=== PATIENT | female | born 2000 | race African-American/Black ===

== ENCOUNTER 2018-02-05 00:16 | Emergency (ER) | payer SELFPAY | END 2018-02-05 01:06 | disposition left against medical advice (07) | LOC: PHED 00:16 | DX: Z00.8 Encounter for other general examination (principal) | CPT/HCPCS: 99281 ==

== ENCOUNTER 2018-02-05 01:39 | Inpatient (IN) | payer MEDICAID ==
[~2018-02-05] VITALS: Ht 167.6 cm; Wt 59.6 kg
[2018-02-05 01:47] VITALS: BP 111/63; PULSE 79; RESP 18; TEMP 98.7; O2SAT 100
--- NOTE | 2018-02-05 02:14 | PD ---
HPI Chief Complaint: Psychiatric Symptoms Time Seen by Provider: 02:09 Travel History International Travel<30 days: No Contact w/Intl Traveler<30days: No Traveled to known affect area: No History of Present Illness HPI 17-year-old female presents voluntarily with her mother for psychiatric evaluation. She reports that she has been feeling depressed and suicidal for several years. Tiffani was the first time that she told her mother about this and thus she was brought here for further evaluation. She told her mother that at some point in the past she tried to commit suicide but she will not say specifically what she did. She denies any attempts at self-harm recently. She denies any drug or alcohol use. She denies any homicidal ideation, auditory visual hallucinations. Symptoms moderate with no aggravating or relieving factors. No medical complaints. [facility] Past Medical History Medical History: Denies Significant Hx Diminished Hearing: No Tetanus Vaccination: Unknown Influenza Vaccination: No ?: Not LMP: 02/04/2018 Past Surgical History Surgical History: No Previous Surgery Social History Alcohol Use: No Tobacco Use: No Substance Use: No Allergies-Medications (Allergen,Severity, Reaction): Coded Allergies: No Known Allergies (Unverified , 02/05/18) Review of Systems Except as stated in HPI: all other systems reviewed are Neg Physical Exam Narrative GENERAL: Well-developed well-nourished female no acute distress SKIN: Warm and dry. HEAD: Atraumatic. Normocephalic. EYES: Pupils equal and round. No scleral icterus. No injection or drainage. ENT: No nasal bleeding or discharge. Mucous membranes pink and moist. NECK: Trachea midline. No JVD. CARDIOVASCULAR: Regular rate and rhythm. No murmur appreciated. RESPIRATORY: No accessory muscle use. Clear to auscultation. Breath sounds equal bilaterally. GASTROINTESTINAL: Abdomen soft, non-tender, nondistended. Hepatic and splenic margins not palpable. MUSCULOSKELETAL: No obvious deformities. No clubbing. No cyanosis. No edema. NEUROLOGICAL: Awake and alert. No obvious cranial nerve deficits. Motor grossly within normal limits. Normal speech. PSYCHIATRIC: Appropriate mood and affect; insight and judgment normal. Data Data Last Documented VS Vital Signs Date Time Temp Pulse Resp B/P (MAP) Pulse Ox O2 Delivery O2 Flow Rate FiO2 02/05/18 01:47 98.7 79 18 111/63 (79) 100 Orders Orders Complete Blood Count With Diff (02/05/18 02:09) Comprehensive Metabolic Panel (02/05/18 02:09) Thyroid Stimulating Hormone (02/05/18 02:09) Ed Urine Pregnancytest Poc (02/05/18 02:09) Psych Screen (02/05/18 02:09) Drug Screen, Random Urine (02/05/18 02:09) Potassium Chloride (Kcl) (02/05/18 03:15) Labs Laboratory Tests Test 02/05/18 02:15 White Blood Count 6.7 TH/MM3 Red Blood Count 5.54 MIL/MM3 Hemoglobin 13.3 GM/DL Hematocrit 40.2 % Mean Corpuscular Volume 72.5 FL Mean Corpuscular Hemoglobin 24.0 PG Mean Corpuscular Hemoglobin Concent 33.1 % Red Cell Distribution Width 17.4 % Platelet Count 205 TH/MM3 Mean Platelet Volume 8.3 FL Neutrophils (%) (Auto) 56.9 % Lymphocytes (%) (Auto) 35.1 % Monocytes (%) (Auto) 7.0 % Eosinophils (%) (Auto) 0.8 % Basophils (%) (Auto) 0.2 % Neutrophils # (Auto) 3.8 TH/MM3 Lymphocytes # (Auto) 2.4 TH/MM3 Monocytes # (Auto) 0.5 TH/MM3 Eosinophils # (Auto) 0.1 TH/MM3 Basophils # (Auto) 0.0 TH/MM3 CBC Comment DIFF FINAL Differential Comment Blood Urea Nitrogen 10 MG/DL Creatinine 0.69 MG/DL Random Glucose 83 MG/DL Total Protein 7.8 GM/DL Albumin 4.0 GM/DL Calcium Level 8.6 MG/DL Alkaline Phosphatase 76 U/L Aspartate Amino Transf (AST/SGOT) 13 U/L Alanine Aminotransferase (ALT/SGPT) 16 U/L Total Bilirubin 0.5 MG/DL Sodium Level 140 MEQ/L Potassium Level 3.3 MEQ/L Chloride Level 107 MEQ/L Carbon Dioxide Level 24.5 MEQ/L Anion Gap 9 MEQ/L Estimat Glomerular Filtration Rate 133 ML/MIN Thyroid Stimulating Hormone 3rd Gen 1.350 uIU/ML Urine Opiates Screen NEG Urine Barbiturates Screen NEG Urine Amphetamines Screen NEG Urine Benzodiazepines Screen NEG Urine Cocaine Screen NEG Urine Cannabinoids Screen NEG MDM Medical Decision Making Medical Screen Exam Complete: Yes Emergency Medical Condition: Yes Medical Record Reviewed: Yes Differential Diagnosis Major depressive disorder, depressive disorder not otherwise specified,, DMDD, acute psychosis, substance-induced mood disorder, adjustment reaction Narrative Course 17-year-old female presents for psychiatric evaluation of depression and suicidal ideation. Mental health screening discussed with the patient. Psychiatric screen ordered. Potassium is 3.3 otherwise lab work is unremarkable. Oral potassium chloride administered. The patient is medically cleared. Diagnosis Primary Impression: Medical clearance for psychiatric admission Bora Ibarra Feb 05, 2018 02:14
[2018-02-05 02:33] LABS: AUTOMATED NEUTROPHIL # 3.8 TH/MM3 (1.8-7.7); BASOPHIL % 0.2 % (0.0-2.0); EOSINOPHIL # 0.1 TH/MM3 (0-0.4); EOSINOPHIL % 0.8 % (0.0-4.0); HEMATOCRIT 40.2 % (35.0-46.0); HEMOGLOBIN 13.3 GM/DL (11.6-15.3); LYMPH % 35.1 % (9.0-44.0); LYMPHOCYTE # 2.4 TH/MM3 (1.0-4.8); MEAN CELL VOLUME 72.5 FL (80.0-100.0); MEAN CORPUSCULAR HGB CONC 33.1 % (32.0-36.0); MEAN PLATELET VOLUME 8.3 FL (7.0-11.0); MONOCYTE # 0.5 TH/MM3 (0-0.9); NEUT % 56.9 % (16.0-70.0); PLATELET COUNT 205 TH/MM3 (150-450); RED BLOOD COUNT 5.54 MIL/MM3 (4.00-5.30); RED CELL DISTRIBUTION WIDTH 17.4 % (11.6-17.2); WHITE BLOOD COUNT 6.7 TH/MM3 (4.0-11.0)
[2018-02-05 02:56] LABS: ALT (GPT) 16 U/L (9-42); AST (GOT) 13 U/L (16-38); BICARBONATE 24.5 MEQ/L (21.0-32.0); BLOOD UREA NITROGEN 10 MG/DL (7-18); CALCIUM 8.6 MG/DL (8.5-10.1); CHLORIDE 107 MEQ/L (98-107); CREATININE 0.69 MG/DL (0.50-1.00); GLOMERULAR FILTRATION RATE 133 ML/MIN (>89); GLUCOSE,RANDOM 83 MG/DL (74-106); SODIUM (NA) 140 MEQ/L (136-145)
[2018-02-05 03:06] LABS: ALKALINE PHOSPHATASE 76 U/L (45-117); TOTAL BILIRUBIN ADULT 0.5 MG/DL (0.2-1.0); TOTAL PROTEIN 7.8 GM/DL (6.4-8.2)
[2018-02-05] MEDS ORDERED: POTASSIUM CHLORIDE 20 MEQ CONTROLLED RELEASE TAB PO ONE (03:15)
[2018-02-05 08:13] VITALS: PULSE 71; RESP 18; O2SAT 100
[2018-02-05] MEDS ORDERED: ALUMINUM/MAGNESIUM/SIMETH 30 ML CUP PO PRN (10:00)
[2018-02-05] MEDS ORDERED: MAGNESIUM HYDROXIDE SUSP 30 ML CUP PO PRN (10:00)
[2018-02-05] MEDS ORDERED: LORazepam 2 MG/ML VIAL IM PRN ×2 (10:00)
[2018-02-05] MEDS: NICOTINE 21 MG/24 HR PATCH T-DERMAL SCH (10:00)
[2018-02-05] MEDS ORDERED: LORazepam 0.5 MG TAB PO PRN (10:00)
[2018-02-05] MEDS ORDERED: ACETAMINOPHEN 325 MG TAB PO PRN (10:00)
[2018-02-05] MEDS ORDERED: LORazepam 1 MG TAB PO PRN (10:00)
[2018-02-05 11:13] VITALS: BP 118/61
[2018-02-05 11:40] VITALS: BP 113/66; PULSE 81; RESP 16; TEMP 98.2; O2SAT 98
--- NOTE | 2018-02-05 15:27 | HHI.HP ---
Provisional Diagnosis Admission Date Feb 05, 2018 at 10:02 [place] I. Major depressive disorder, single episode, severe, without psychosis [place] II. Deferred [place] III. No medical history [place] IV. Recently emigrated to the [place] from [place] V. 35 Certification of Person's Competence To Provide Express and Informed Consent I have personally examined Nell House , a person being served at [facility] on, Feb 05, 2018 15:07. Express and informed consent means consent voluntarily given in writing, by a competent person, after sufficient explanation and disclosure of the subject matter involved to enable the person to make a knowing and willful decision without any element of force, fraud, deceit, duress, or other form of constraint or coercion. This person is 18 years of age or older, is not now known to be incompetent to consent to treatment with a guardian advocate, and does not have a health care surrogate or proxy currently making medical treatment decisions. I have found this person to be one of the following: [] Competent to provide express and informed consent, as defined above, for voluntary admission to this facility and is competent to provide express and informed consent for treatment. He/she has the consistent capacity to make well reasoned, willful, and knowing decisions concerning his or her medical or mental health treatment. The person fully and consistently understands the purpose of the admission for examination/placement and is fully capable of personally exercising all rights assured under [place] Incompetent to provide express and informed consent to voluntary admission, and this is incompetent to provide express and informed consent to treatment. The person must be transferred to involuntary status and a petition for a guardian advocate filed with the Circuit Court. [x] Refusing to provide express and informed consent to voluntary admission but is competent to provide express and informed consent for treatment. The person must be discharged or transferred to involuntary status. Form shall be completed within 24 hours of a person's arrival at the receiving facility and filed in the clinical record of each person: 1. Admitted on a voluntary basis 2. Permitted to provide express and informed consent to his/her own treatment 3. Allowed to transfer from involuntary to voluntary status 4. Prior to permitting a person to consent to his or her own treatment after having been previously found incompetent to consent to treatment. History of Present Illness Capacity: Has Capacity HPI The patient is 17-year-old [facility] woman, domiciled with her mother in [place], single, college student, employed in maintenance department at [employer], without no previous psychiatric history, no previous suicidal attempts, no previous psychiatric hospitalizations, no significant medical history, who presents voluntarily with her mother for psychiatric evaluation voluntarily. She initially reports that she has been feeling depressed and suicidal for several years. Last night was the first time that she told her mother about this and thus she was brought here for further evaluation. She told her mother that at some point in the past she tried to commit suicide but she will not say specifically what she did. She denies any attempts at self- harm recently. She denies any drug or alcohol use. She denies any homicidal ideation, auditory visual hallucinations. Symptoms moderate with no aggravating or relieving factors. No medical complaints. EMR was reviewed. Case was discussed with nursing charge and also with medical student Jude. Collateral information from her mother Armando Vyas, was obtained. On psychiatric evaluation I find a patient that is very tearful, she seems to be very fragile and vulnerable, at the beginning reluctant to open up about her depression, but with redirection and reassurance she was able to share that for the last months she has been having persistent and recurrent suicidal thoughts for no reason, as the patient discloses information she is started crying profusely. She says that she cannot understand her feelings and emotions. She says that she has always been a sad person, but since emigrated to [facility] , "for no reason", even though the patient cannot identify an acute stressors, the patient has been feeling increasingly hopeless, helpless, with no motivation , extremely pessimistic, no finding meaning in her life, persistently thinking and committing suicide in multiple ways. Last night, she says, she had a good day, but once she left her job she had "an emergency of killing myself". Her mother was able to add, that she was surprised that the patient all of the sudden yesterday, after having a good day at work, they work together [employer], they were in their way back home, the patient started crying stating that she wanted to kill herself. The mother became quite scared and drove back to [facility]. During my evaluation the patient is logical, coherent and relevant. She seems to be very sensitive to frustration and criticism, she denies recent interpersonal problems, she denied recent disagreement with significant others of friends, he denies economical burden. During my evaluation there is no visible paranoia, delusions, ideas of reference , disorganized behavior or speech, attention deficit, fluctuation of consciousness. She is oriented 3. She denies the use of illegal drugs and alcohol. Review of Systems Constitutional: DENIES: Diaphoretic episodes, Fatigue, Fever, Weight gain, Weight loss, Chills, Dizziness, Change in appetite, Night Sweats Endocrine: DENIES: Abnorml menstrual pattern, Heat/cold intolerance, Polydipsia , Polyuria, Polyphagia Eyes: DENIES: Blurred vision, Diplopia, Eye inflammation, Eye pain, Vision loss , Photosensitivity, Double Vision Ears, nose, mouth, throat: DENIES: Tinnitus, Hearing loss, Vertigo, Nasal discharge, Oral lesions, Throat pain, Hoarseness, Ear Pain, Running Nose, Epistaxis, Sinus Pain, Toothache, Odynophagia Respiratory: DENIES: Apneas, Cough, Snoring, Wheezing, Hemoptysis, Sputum production, Shortness of breath Cardiovascular: DENIES: Chest pain, Palpitations, Syncope, Dyspnea on Exertion , PND, Lower Extremity Edema, Orthopnea, Claudication Gastrointestinal: DENIES: Abdominal pain, Black stools, Bloody stools, Constipation, Diarrhea, Nausea, Vomiting, Difficulty Swallowing, Anorexia Genitourinary: DENIES: Abnormal vaginal bleeding, Dysmenorrhea, Dyspareunia, Sexual dysfunction, Urinary frequency, Urinary incontinence, Urgency, Hematuria , Dysuria, Nocturia, Vaginal discharge Musculoskeletal: DENIES: Joint pain, Muscle aches, Stiffness, Joint Swelling, Back pain, Neck pain Integumentary: DENIES: Abnormal pigmentation, Pruritus, Rash, Nail changes, Breast masses, Breast skin changes, Nipple discharge Hematologic/lymphatic: DENIES: Bruising, Lymphadenopathy Immunologic/allergic: DENIES: Eczema, Urticaria Neurologic: DENIES: Abnormal gait, Headache, Localized weakness, Paresthesias, Seizures, Speech Problems, Tremor, Poor Balance Psychiatric: COMPLAINS OF: Mood changes, Depression, Suicidal Ideation, DENIES : Anxiety, Confusion, Hallucinations, Agitation, Homicidal Ideation, Delusions Substance Abuse History Drugs/Alcohol past 12 months The patient denies the use of drugs and alcohol Past Family Social History Coded Allergies: No Known Allergies (Unverified , 02/05/18) Past Medical History No significant medical history Current Medications Medications (Trade) Dose Ordered Sig/Emperatriz Route Start Time Stop Time Status Last Admin (Ativan) 1 mg Q6H PRN PO 02/05/18 10:00 (Ativan Inj) 1 mg Q6H PRN IM 02/05/18 10:00 (Ativan) 0.5 mg Q12H PRN PO 02/05/18 10:00 (Ativan Inj) 0.5 mg Q12H PRN IM 02/05/18 10:00 (Tylenol) 650 mg Q4H PRN PO 02/05/18 10:00 (Milk Of Magnesia Liq) 30 ml DAILY PRN PO 02/05/18 10:00 (Mag-Al Plus Susp Liq) 30 ml Q6H PRN PO 02/05/18 10:00 (Habitrol 21 Mg Patch.24 Hr) 1 patch DAILY T-DERMAL 02/05/18 10:00 Miscellaneous Information 1 DAILY T-DERMAL 02/06/18 09:00 Family Psych History Her mother had a history of depression, one suicidal attempt by overdose Social History Patient was born and raised in [place], she lives in [place] with her mother , she is single, no kids, employed in maintenance in [employer], she is a college student. Patient's Strengths (min. 2) Employed, no previous psychiatric history, family support Physical Exam No tremors, no EPS, no psychomotor retardation or agitation, no catatonia Vital Signs Vital Signs Date Time Temp Pulse Resp B/P (MAP) Pulse Ox O2 Delivery O2 Flow Rate FiO2 02/05/18 11:40 98.2 81 16 113/66 (82) 98 02/05/18 08:13 Room Air Lab Results Test 02/05/18 02:15 White Blood Count 6.7 TH/MM3 Red Blood Count 5.54 MIL/MM3 Hemoglobin 13.3 GM/DL Hematocrit 40.2 % Mean Corpuscular Volume 72.5 FL Mean Corpuscular Hemoglobin 24.0 PG Mean Corpuscular Hemoglobin Concent 33.1 % Red Cell Distribution Width 17.4 % Platelet Count 205 TH/MM3 Mean Platelet Volume 8.3 FL Neutrophils (%) (Auto) 56.9 % Lymphocytes (%) (Auto) 35.1 % Monocytes (%) (Auto) 7.0 % Eosinophils (%) (Auto) 0.8 % Basophils (%) (Auto) 0.2 % Neutrophils # (Auto) 3.8 TH/MM3 Lymphocytes # (Auto) 2.4 TH/MM3 Monocytes # (Auto) 0.5 TH/MM3 Eosinophils # (Auto) 0.1 TH/MM3 Basophils # (Auto) 0.0 TH/MM3 CBC Comment DIFF FINAL Differential Comment Blood Urea Nitrogen 10 MG/DL Creatinine 0.69 MG/DL Random Glucose 83 MG/DL Total Protein 7.8 GM/DL Albumin 4.0 GM/DL Calcium Level 8.6 MG/DL Alkaline Phosphatase 76 U/L Aspartate Amino Transf (AST/SGOT) 13 U/L Alanine Aminotransferase (ALT/SGPT) 16 U/L Total Bilirubin 0.5 MG/DL Sodium Level 140 MEQ/L Potassium Level 3.3 MEQ/L Chloride Level 107 MEQ/L Carbon Dioxide Level 24.5 MEQ/L Anion Gap 9 MEQ/L Estimat Glomerular Filtration Rate 133 ML/MIN Thyroid Stimulating Hormone 3rd Gen 1.350 uIU/ML Urine Opiates Screen NEG Urine Barbiturates Screen NEG Urine Amphetamines Screen NEG Urine Benzodiazepines Screen NEG Urine Cocaine Screen NEG Urine Cannabinoids Screen NEG Mental Status Examination Appearance: Appropriate Consciousness: Alert Orientation: x4 Motor Activity: Normal gait Speech: Unremarkable Language: Adequate Fund of Knowledge: Adequate Attention and Concentration: Adequate Memory: Unremarkable Mood: Sad Affect: Irritable, Sad Thought Process & Associations: Intact Thought Content: Appropriate Hallucination Type: None Delusion Type: None Suicidal Ideation: Yes Suicidal Plan: Yes Suicidal Intention: No Homicidal Ideation: No Homicidal Plan: No Homicidal Intention: No Insight: Poor Judgment: Poor Assessment & Plan Problem List: (1) Major depressive disorder, single episode ICD Codes: F32.9 - Major depressive disorder, single episode, unspecified Assessment & Plan: On psychiatric evaluation I find a patient in the ER at the beginning is oppositional, resistant to open up, but with redirection she is able to talk about her recent increase symptoms of depression and suicidal ideation. Patient reports that for a long time she has been feeling hopeless, helpless, with increased sensitivity to rejection, frustration, mood swings, lack of motivation, generalized pessimism, and persistent suicidal thoughts without a suicidal plan. She says that by time to time, for a long period of time now, she has been having intrusive, kind of obsessive suicidal thoughts without a clear acute stressor in her life. Yesterday as she was leaving her job with her mother, they work together at [employer] [place], all of the sudden she is started having suicidal thoughts, she is started crying and feeling very depressed and her mother brought her to the ER for psychiatric evaluation in voluntary basis. During my evaluation the patient presents very tearful, objectively depressed, at times even she looks desperate, even though she consistently denies any acute or chronic stressor in her life other than moving from [place] to the [facility] about a year ago. Given her persistent suicidal ideation, her current fragility and vulnerability, acute symptoms of depression, the patient has an increased risk of suicidality and she needs psychiatric admission for stabilization. Patient will be Jocelynn brody. Admitted in psychiatry in 2600 unit. Her mother agree with this plan. Extensive support, motivation and psychoeducation provided. I am thinking in a primary mood disorder as a primary source of current presentation, but even though I could not elicit any psychotic symptoms a primary psychotic disorder is also possible. Will order Ativan 2 mg p.o. stat to help the patient to calm down, Zoloft 25 mg p.o. daily for depression. will consult psychiatry for second opinion. Assessment & Plan Estimated LOS: Manny Granger MD Feb 05, 2018 15:27
[2018-02-05 18:23] VITALS: BP 130/70; PULSE 80; RESP 16; TEMP 97.6; O2SAT 99
--- NOTE | 2018-02-05 22:09 | PD.CONS ---
HPI Chief Complaint vaginal discharge Travel History International Travel<30 Days: No Contact w/Intl Traveler<30Days: No Known Affected Area: No History of Present Illness HPI 17-year-old G0 who was involuntarily committed for suicidal thoughts. Upon review of systems, apparently the patient noted that she had a history of regular vaginal discharge. The patient reports that she does have regular vaginal discharge that is white in nature, she denies any odor, she denies any color to the discharge light green/yellow. She reports that occasionally she has some itching. She is unable to further characterize the discharge is then or thick/clumpy reports that it dries on her underwear. There have been no attempted treatments. There are no aggravating symptoms. She reports that at this time she is having no vaginal discharge or itching. She reports that her period started Monday, 2 days ago. She reports that she is not sexually active at this time. She reports that occasionally she gets small "bumps" on her perineal area that was spontaneously drained. She reports that she had one recently that she put antibiotic cream on and it has improved. History Past Medical History Medical History: Denies Significant Hx Obstetric History Obstetric History G0 Menarche age 10, menses every month and last 5-6 days Patient has never had a Pap smear Patient has a history of chlamydia in the past Patient reports she is not sexually active Past Surgical History Surgical History: No Previous Surgery Family History Family History: Negative Social History Alcohol Use: No Tobacco Use: No Substance Abuse: No Allergies-Medications (Allergen,Severity, Reaction): Coded Allergies: No Known Allergies (Unverified , 02/05/18) Review of Systems Except as stated in HPI: all other systems reviewed are Neg Physical Exam Vital Signs Date Time Temp Pulse Resp B/P (MAP) Pulse Ox O2 Delivery O2 Flow Rate FiO2 02/05/18 18:23 97.6 80 16 130/70 (90) 99 02/05/18 11:40 98.2 81 16 113/66 (82) 98 02/05/18 11:13 118/61 (80) 02/05/18 08:13 71 18 100 Room Air 02/05/18 01:47 98.7 79 18 111/63 (79) 100 Narrative GENERAL: Well-nourished, well-developed patient. SKIN: Warm and dry. HEAD: Normocephalic and atraumatic. EYES: No scleral icterus. No injection or drainage. ENT: No nasal drainage noted. Mucous membranes pink. Airway patent. NECK: Supple, trachea midline. No JVD. CARDIOVASCULAR: Regular rate and rhythm without murmurs, gallops, or rubs. RESPIRATORY: Breath sounds equal bilaterally. No accessory muscle use. BREASTS: Deferred ABDOMEN/GI: Abdomen soft, non-tender, bowel sounds present, no rebound, no guarding GENITOURINARY: The patient has refused a gynecological examination she is having her period at this time. EXTREMITIES: No cyanosis or edema. BACK: Nontender without obvious deformity. NEUROLOGICAL/musculoskeletal: Awake and alert. Motor and sensory grossly within normal limits. Grossly normal muscle strength in all muscle groups. Normal speech. Normal range of motion, gait not assessed Psychiatric: Grossly normal memory and affect Data Data Orders Orders Complete Blood Count With Diff (02/05/18 02:09) Comprehensive Metabolic Panel (02/05/18 02:09) Thyroid Stimulating Hormone (02/05/18 02:09) Ed Urine Pregnancytest Poc (02/05/18 02:09) Psych Screen (02/05/18 02:09) Drug Screen, Random Urine (02/05/18 02:09) Potassium Chloride (Kcl) (02/05/18 03:15) Diet Regular Basic (02/05/18 Breakfast) Admit To Inpatient Psych (02/05/18 ) Vital Signs (Adult) DIANN.Q12H.E (02/05/18 09:58) Activity Oob Ad Katherine (02/05/18 09:58) Lorazepam (Ativan) (02/05/18 10:00) Lorazepam Inj (Ativan Inj) (02/05/18 10:00) Lorazepam (Ativan) (02/05/18 10:00) Lorazepam Inj (Ativan Inj) (02/05/18 10:00) Acetaminophen (Tylenol) (02/05/18 10:00) Magnesium Hydroxide Liq (Milk Of Magnesi (02/05/18 10:00) Al-Mag Hy-Si 40-40-4 Mg/Ml Liq (Mag-Al P (02/05/18 10:00) Nicotine 21 Mg Patch.24 Hr (Habitrol 21 (02/05/18 10:00) Basic Metabolic Panel (Bmp) (02/06/18 06:00) Lipid Profile (02/06/18 06:00) Hemoglobin (Hgb) A1c (02/06/18 06:00) Remove Old Patch (02/06/18 09:00) Consult Psychiatry (02/05/18 ) (Hub Use Only)Inp Phy Cons/Ref (02/05/18 ) Level Of Observation (Psych) (02/05/18 17:43) Consult Gynecology (02/05/18 ) ^ Other Nursing Orders (02/05/18 18:21) (Hub Use Only)Inp Phy Cons/Ref (02/05/18 ) Labs Laboratory Tests Test 02/05/18 02:15 White Blood Count 6.7 Red Blood Count 5.54 Hemoglobin 13.3 Hematocrit 40.2 Mean Corpuscular Volume 72.5 Mean Corpuscular Hemoglobin 24.0 Mean Corpuscular Hemoglobin Concent 33.1 Red Cell Distribution Width 17.4 Platelet Count 205 Mean Platelet Volume 8.3 Neutrophils (%) (Auto) 56.9 Lymphocytes (%) (Auto) 35.1 Monocytes (%) (Auto) 7.0 Eosinophils (%) (Auto) 0.8 Basophils (%) (Auto) 0.2 Neutrophils # (Auto) 3.8 Lymphocytes # (Auto) 2.4 Monocytes # (Auto) 0.5 Eosinophils # (Auto) 0.1 Basophils # (Auto) 0.0 CBC Comment DIFF FINAL Differential Comment Blood Urea Nitrogen 10 Creatinine 0.69 Random Glucose 83 Total Protein 7.8 Albumin 4.0 Calcium Level 8.6 Alkaline Phosphatase 76 Aspartate Amino Transf (AST/SGOT) 13 Alanine Aminotransferase (ALT/SGPT) 16 Total Bilirubin 0.5 Sodium Level 140 Potassium Level 3.3 Chloride Level 107 Carbon Dioxide Level 24.5 Anion Gap 9 Estimat Glomerular Filtration Rate 133 Thyroid Stimulating Hormone 3rd Gen 1.350 Urine Opiates Screen NEG Urine Barbiturates Screen NEG Urine Amphetamines Screen NEG Urine Benzodiazepines Screen NEG Urine Cocaine Screen NEG Urine Cannabinoids Screen NEG MDM Plan Assessment/plan: 1. Involuntary admission for suicidal thoughts: As per primary team 2. History of vaginal discharge: The patient has refused gynecologic exam at this time due to her menses. 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 Would perform wet prep to evaluate for bacterial vaginosis, trichomonas, and Nichole. Patient denies any recent sexual activity but will perform GC chlamydia testing. 3. History of chlamydia 4. Thank you for the consult on this pleasant young lady, as noted above please recall when patient's menses has ended as she has agreed to a gynecological exam after her period has ended. Admitting diagnosis: Adjusment disorder with depression Debi Salcedo MD Feb 05, 2018 22:09
[2018-02-06 06:25] VITALS: BP 98/55; PULSE 81; RESP 17; TEMP 97.6; O2SAT 100
[2018-02-06 08:49] LABS: BACTERIA, URINE RARE /hpf; BILIRUBIN, URINE NEG (NEG); BLOOD, URINE MOD (NEG); GLUCOSE,URINE NEG (NEG); KETONE, URINE TRACE mg/dL (NEG); MUCUS URINE FEW /lpf (OCC); NITRITE,URINE NEG (NEG); SQUAMOUS EPITHELIAL CELL URINE 1 /hpf (0-5); URINE COLOR YELLOW (YELLW/STRAW); URINE LEUKOCYTE ESTERASE NEG (NEG)
[2018-02-06] MEDS: NICOTINE 21 MG/24 HR PATCH T-DERMAL SCH (09:00)
[2018-02-06] MEDS: REMOVE OLD NICOTINE PATCH T-DERMAL SCH (09:00)
[2018-02-06 09:26] LABS: BICARBONATE 21.6 MEQ/L (21.0-32.0); BLOOD UREA NITROGEN 11 MG/DL (7-18); CALCIUM 8.7 MG/DL (8.5-10.1); CHLORIDE 109 MEQ/L (98-107); CREATININE 0.67 MG/DL (0.50-1.00); GLOMERULAR FILTRATION RATE 137 ML/MIN (>89); GLUCOSE,RANDOM 78 MG/DL (74-106); SODIUM (NA) 141 MEQ/L (136-145)
[2018-02-06 09:27] LABS: CHOLESTEROL 123 MG/DL (120-200); TRIGLYCERIDES 27 MG/DL (42-150)
[2018-02-06 09:30] LABS: HDL CHOLESTEROL 68.2 MG/DL (40.0-60.0); LDL CHOLESTEROL 49 MG/DL (0-99)
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
[2018-02-06] MEDS ORDERED: hydrOXYzine HCL 50 MG TAB PO PRN (10:30)
[2018-02-06] MEDS ORDERED: PILL SPLITTER OTHER PRN (10:30)
[2018-02-06] MEDS: SERTRALINE HCL 50 MG TAB PO SCH (12:44)
[2018-02-06] MEDS ORDERED: diphenhydrAMINE HCL 50 MG CAP PO PRN (21:00)
[2018-02-07 06:23] VITALS: BP 82/48; PULSE 91; RESP 20; TEMP 97.9; O2SAT 98
[2018-02-07] MEDS: REMOVE OLD NICOTINE PATCH T-DERMAL SCH (08:32)
[2018-02-07] MEDS: SERTRALINE HCL 50 MG TAB PO SCH (08:32)
[2018-02-07] MEDS: NICOTINE 21 MG/24 HR PATCH T-DERMAL SCH (08:32)
[2018-02-07 09:51] VITALS: BP 99/67; PULSE 87; RESP 18; TEMP 98.2; O2SAT 100
--- NOTE | 2018-02-07 14:40 | HHI.PYPN ---
Subjective Remarks Patient seen and examined with nurse. Chart reviewed. Case discussed with nursing staff who reports the patient seems more upbeat. On my examination today, the patient's affect does indeed seem brighter. She denies any suicidal or homicidal ideation. Extensive psychoeducation regarding diagnosis of unipolar depression and differentiating this from bipolar depression. Patient agrees that her symptoms are more consistent with unipolar depression. She complains of some mild dizziness from medications. I will check orthostatics and have instituted fall precautions. I have also counseled the patient regarding safe standing. No other physical complaints. Review of Systems Except as stated in HPI: all other systems reviewed are Neg Mental Status Examination Appearance: Appropriate Consciousness: Alert Orientation: x4 Motor Activity: Other (No abnormal motor movements noted) Speech: Unremarkable Language: Adequate Fund of Knowledge: Adequate Attention and Concentration: Adequate Memory: Unremarkable (Grossly intact on clinical exam) Mood: Other (Mood is improving) Affect: Appropriate (Fairly full and reactive) Thought Process & Associations: Intact, Logical, Linear Thought Content: Appropriate Hallucination Type: None Delusion Type: None Suicidal Ideation: No Suicidal Plan: No Suicidal Intention: No Homicidal Ideation: No Homicidal Plan: No Homicidal Intention: No Insight: Fair Judgment: Impulsive Results Labs Labs reviewed Vitals/IOs Vital Signs Date Time Temp Pulse Resp B/P (MAP) Pulse Ox O2 Delivery O2 Flow Rate FiO2 02/07/18 09:51 98.2 87 18 99/67 (78) 100 02/05/18 08:13 Room Air Assessment & Plan Problem List: (1) Major depressive disorder, single episode ICD Codes: F32.9 - Major depressive disorder, single episode, unspecified Assessment & Plan Continue current psychotropics as ordered. Follow-up orthostatic vital signs. Continue other medications and care as ordered. Justification for Cont. Inpt. Monitoring for impairment in safety, none noted Discharge Planning Possible discharge tomorrow Request HC Surrog/Guard Advoc?: No Problem Qualifiers (1) Major depressive disorder, single episode: Qualified Codes: F32.1 - Major depressive disorder, single episode, moderate Salas Contreras MD Feb 07, 2018 14:40
[2018-02-07 18:33] VITALS: BP_SYST 100; BP_SYST 103; BP_SYST 107; BP_DIAS 58; BP_DIAS 62; BP_DIAS 64; PULSE 76; RESP 16; TEMP 98.3; O2SAT 97
[2018-02-08 06:22] VITALS: BP 102/53; PULSE 80; RESP 18; TEMP 97.9; O2SAT 98
[2018-02-08] MEDS: SERTRALINE HCL 50 MG TAB PO SCH (08:28)
[2018-02-08] MEDS: NICOTINE 21 MG/24 HR PATCH T-DERMAL SCH (09:00)
[2018-02-08] MEDS: REMOVE OLD NICOTINE PATCH T-DERMAL SCH (09:00)
[2018-02-08] MEDS ORDERED: ZOLO50TA PO (12:24)
--- NOTE | 2018-02-08 12:24 | HHI.DS ---
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 She initially reports that she has been feeling depressed and suicidal for several years. Last night was the first time that she told her mother about this and thus she was brought here for further evaluation. She told her mother that at some point in the past she tried to commit suicide but she will not say specifically what she did. She denies any attempts at self- harm recently. She denies any drug or alcohol use. She denies any homicidal ideation, auditory visual hallucinations. Symptoms moderate with no aggravating or relieving factors. No medical complaints. EMR was reviewed. Case was discussed with nursing charge and also with medical student Jude. Collateral information from her mother Armando Vyas, was obtained. On psychiatric evaluation I find a patient that is very tearful, she seems to be very fragile and vulnerable, at the beginning reluctant to open up about her depression, but with redirection and reassurance she was able to share that for the last months she has been having persistent and recurrent suicidal thoughts for no reason, as the patient discloses information she is started crying profusely. She says that she cannot understand her feelings and emotions. She says that she has always been a sad person, but since emigrated to [facility] , "for no reason", even though the patient cannot identify an acute stressors, the patient has been feeling increasingly hopeless, helpless, with no motivation , extremely pessimistic, no finding meaning in her life, persistently thinking and committing suicide in multiple ways. Last night, she says, she had a good day, but once she left her job she had "an emergency of killing myself". Her mother was able to add, that she was surprised that the patient all of the sudden yesterday, after having a good day at work, they work together Linda Friedman, they were in their way back home, the patient started crying stating that she wanted to kill herself. The mother became quite scared and drove [facility]. During my evaluation the patient is logical, coherent and relevant. She seems to be very sensitive to frustration and criticism, she denies recent interpersonal problems, she denied recent disagreement with significant others of friends, he denies economical burden. During my evaluation there is no visible paranoia, delusions, ideas of reference , disorganized behavior or speech, attention deficit, fluctuation of consciousness. She is oriented 3. She denies the use of illegal drugs and alcohol. Tobacco Use In Past 30 Days: No Tobacco Past 30 Days Alcohol Use: Never Hospital Course Patient was admitted to a locked, inpatient psychiatric unit. Gynecology consultation was obtained. Appropriate precautions were in place throughout patient's hospital stay. Patient was seen and examined on the unit by psychiatry and also visited by counselor. Psychotropic medications were adjusted. There was no evidence of suicidality or homicidality on the inpatient unit. There is no evidence of self-care deficit. Collateral information was obtained from the patient's mother. On the day of discharge: Patient seen and examined with nurse. Chart reviewed. Case discussed with nursing staff. No behavioral issues noted overnight. On my examination today, the patient is requesting discharge from the inpatient psychiatric unit today. She denies any episodes of moodiness since arriving on the unit, nor can I elicit any depressive or hypomanic/manic symptoms presently. She denies any suicidal or homicidal ideation, intent or plan and contracts for safety. She denies any audiovisual hallucinations, and I can elicit no delusional material. There is no evidence of impairment in reality construction. She denies side effects from medications. Orthostatic blood pressures negative. She has no physical complaints and denies ongoing dizziness. Suicide and violence risk assessment on day of discharge both suggest lower imminent risk from mental illness as defined under the Cabezas act, and there is no evidence of self-care deficit from mental illness as defined under the Cabezas act. The patient does not meet criteria for involuntary psychiatric hospitalization. She is requesting discharge from the inpatient psychiatric unit today, and I have no basis to retain her over her objection. Patient will be discharged today with psychiatric follow-up as arranged by counselor. Patient is also to follow up with primary care and gynecology. I have counseled the patient to abstain from any substances of abuse. I have counseled the patient regarding warning signs for need to return to the psychiatric emergency room as part of a general safety plan. Results Blood Pressure 102 / 53 Vital Signs Date Time Temp Pulse Resp B/P (MAP) Pulse Ox O2 Delivery O2 Flow Rate FiO2 02/08/18 06:22 97.9 80 18 102/53 (69) 98 02/05/18 08:13 Room Air Laboratory Tests Test 02/06/18 07:30 02/06/18 08:43 Urine Ketones TRACE mg/dL (NEG) Urine Occult Blood MOD (NEG) Urine Bacteria RARE /hpf (NONE) Urine Mucus FEW /lpf (OCC) Chloride Level 109 MEQ/L (98-107) Triglycerides Level 27 MG/DL (42-150) HDL Cholesterol 68.2 MG/DL (40.0-60.0) Laboratory Results Test 02/06/18 08:43 Cholesterol Level 123 MG/DL (120-200) HDL Cholesterol 68.2 MG/DL (40.0-60.0) Hemoglobin A1c 5.0 % (4.3-6.0) LDL Cholesterol 49 MG/DL (0-99) Triglycerides Level 27 MG/DL (42-150) Summary of Procedures None done Imaging None done Pending results at discharge: No Medications # of Antipsychotic meds at D/C: 0 Approp Antipsych med options 1 - Minimum of three failed multiple trials of monotherapy. 2 - Documented plan to taper to monotherapy due to previous use of multiple meds OR cross-taper in progress at D/C. 3 - Documentation of augmentation of Clozapine. 4 - Justification other than those listed in allowable values 1-3, document here : Discharge Discharge Date: Feb 08, 2018 Discharge Diagnosis: (1) Major depressive disorder, single episode, in remission Diagnosis: Principal ICD Code: F32.5 - Major depressive disorder, single episode, in full remission Pt Condition on Discharge: Stable Discharge Disposition: Discharge Home Discharge Instructions Diet Instructions: As Tolerated, No Restrictions Activities you can perform: Weight Bearing as Esdras Scheduled Appointment: As per counselors notes New Medications: Sertraline (Zoloft) 50 Mg Tab 25 MG PO DAILY for Mental Health for 15 Days, #8 TAB 1 Refill Discharge Time <= 30 minutes Mental Status Examination Appearance: Appropriate Consciousness: Alert Orientation: x4 Motor Activity: Normal gait, Other (No motor abnormalities noted) Speech: Unremarkable Language: Adequate Fund of Knowledge: Adequate Attention and Concentration: Adequate Memory: Unremarkable (Grossly intact on clinical exam) Mood: Appropriate Affect: Appropriate Thought Process & Associations: Intact, Logical, Goal directed, Linear Thought Content: Appropriate Hallucination Type: None Delusion Type: None Suicidal Ideation: No Suicidal Plan: No Suicidal Intention: No Homicidal Ideation: No Homicidal Plan: No Homicidal Intention: No Insight: Adequate Judgment: Adequate Discharge/Advance Care Plan Health Problems: (1) Major depressive disorder, single episode Goals to promote your health * To prevent worsening of your condition and complications * To maintain your health at the optimal level Directions to meet your goals Take your medications as prescribed Follow your dietary instruction Follow activity as directed Keep your appointments as scheduled Take your immunizations and boosters as scheduled If your symptoms worsen call your PCP, if no PCP go to Urgent Care Center or Emergency Room For 20/03 questions related to your inpatient stay or results of tests pending at discharge, please contact Dr. Salas Contreras at Smoking is Dangerous to Your Health. Avoid second hand smoking Problem Qualifiers (1) Major depressive disorder, single episode: Qualified Codes: F32.1 - Major depressive disorder, single episode, moderate Salas Contreras MD Feb 08, 2018 12:24
== END 2018-02-08 13:25 | disposition home or self-care (01) | DRG 885 ==
LOC: NEPD 01:39 → NEDA 10:02 → H260 11:10
PROVIDERS: ADMIT Psychiatry & Neurology Psychiatry; ATTEND Psychiatry & Neurology Psychiatry
DX: F32.1 Major depressive disorder, single episode, moderate (principal); R45.851 Suicidal ideations; N89.8 Other specified noninflammatory disorders of vagina
CPT/HCPCS: 80048; 80053; 80061; 80307; 81001; 83036; 84443; 84703; 85025; 87491; 87591